=== PATIENT | female | born 1940 | race African-American/Black ===

== ENCOUNTER 2023-08-30 22:35 | Emergency (ER) | payer BC, MEDICARE ==
[~2023-08-30] VITALS: Ht 152.4 cm; Wt 46.0 kg
[~2023-08-30 22:35] MED LIST: atenolol; simvastatin
[2023-08-30 22:42] VITALS: O2SAT 99
[2023-08-31] MEDS ORDERED: ACETAMINOPHEN 325MG TABLET PO STA (00:20)
[2023-08-31 01:34] LABS: BASOPHILS % 0.1 % (0.0-2.0); HEMATOCRIT. 41.1 % (36.0-48.0); HEMOGLOBIN. 13.2 g/dL (12.0-16.0); LYMPHOCYTES % 23.9 % (20.0-50.0); MEAN CORPUSCULAR HEMOGLOBIN 26.4 pg (28.0-32.0); MEAN CORPUSCULAR HGB CONC 32.1 g/dL (31.0-37.0); MEAN CORPUSCULAR VOLUME 82.3 fL (81.0-99.0); MEAN PLATELET VOLUME 6.7 fl (7.4-10.4); MONOCYTES % 9.6 % (2.0-8.0); NEUTROPHILS % 65.4 % (40.0-76.0); PLATELET 261 x1000/uL (130-400); RED CELL DISTRIBUTION WIDTH 14.8 % (11.6-14.6); WHITE BLOOD COUNT 4.2 x1000/uL (4.5-11.0)
[2023-08-31 01:43] LABS: CALCIUM 9.8 mg/dL (8.7-10.4); CARBON DIOXIDE 30 mEq/L (21-32); CHLORIDE 103 mEq/L (98-107); CREATININE 0.7 mg/dL (0.6-1.0); GLUCOSE 95 mg/dL (70-105); POTASSIUM 4.3 mEq/L (3.5-5.1); SODIUM 139 mEq/L (136-145); UREA NITROGEN BLOOD 11 mg/dL (9-23)
[2023-08-31 05:15] VITALS: BP 139/79; PULSE 73; RESP 16; TEMP 98.5
== END 2023-08-31 05:30 | disposition home or self-care (01) ==
LOC: ER 22:35
DX: I10 Essential (primary) hypertension (principal); R51.9 Headache, unspecified; I48.91 Unspecified atrial fibrillation; Z88.5 Allergy status to narcotic agent
CPT/HCPCS: 36415; 80048; 85025; 99284